=== PATIENT | female | born 1955 | race Caucasian/White ===

== ENCOUNTER → 2016-12-24 | Outpatient (CLI) | payer OTHER ==
[~2016-12-24] MED LIST: CYCLOBENZAPRINE10 MG PO; HYDROCHLOROTHIA25 M2 PO; HYDROCODON-ACE1 EAC7 PO; IODORAL PO; LISINOPRIL-HCT1 EAC2 PO; NORVASC5 MG PO; PEPCID20 MG PO; POTASSIUM CITR10 ME1 PO; PREDNISONE 20 M20 MG PO; VITAMIN B-625 MG PO; ZESTORETIC 10-1 EACH PO
== END ==
LOC: RAD 11:05
DX: M79.673 Pain in unspecified foot (principal)